=== PATIENT | male | born 1980 | race Caucasian/White ===

== ENCOUNTER → 2018-07-30 | Outpatient (REF) ==
[~2018-07-30] MED LIST: ACET1TAB16 PO; ALEV220T26 PO; GABA-843 PO
--- NOTE | 2018-07-30 13:33 | REP ---
PARTIAL LUMBAR SPINE, THREE VIEWS: HISTORY: Degenerative disc disease. There is no acute fracture. The L3-4 intervertebral disc is decreased in height consistent with disc degeneration. There are 4 mm of retrolisthesis of L5 on S1. There is slight loss of the normal lordotic curve. IMPRESSION: Degenerative change as described above. Electronically Signed by Petey Sawyer MD 07/30/2018 02:02 P
--- NOTE | 2018-07-30 14:12 | REP ---
Right shoulder three views : There is no fracture or dislocation. Mineralization and joint spaces are normal. There are no calcifications or foreign bodies. Impression: Negative right shoulder . Electronically Signed by Jerry Fallon MD 07/30/2018 02:05 P
== END ==
LOC: M SMT 11:24
PROVIDERS: ATTEND Internal Medicine
DX: Z00.00 Encounter for general adult medical examination without abnormal findings (principal)

== ENCOUNTER → 2020-05-31 | Outpatient (CLI) | payer OTHER ==
[~2020-05-31] MED LIST changes: +GABA-282 PO; -GABA-843 PO; +GABA800T4 PO; +LIDOCAINE 1% MDV 20ML VIAL As Ordered ONE; +NABU-53 PO
[2020-05-31 13:25] VITALS: BP 170/97
--- NOTE | 2020-05-31 17:51 | REP ---
INDICATION: ? SEPTIC FACET ARTHRITIS. COMPARISON: None. TECHNIQUE: The procedure was performed under the personal supervision of Dr. Schaffer. The patient has a history of edema of the bone marrow of the right facets at C3 and C4 as well as edema of the tissue to the right of the facets. The risks and benefits of the procedure were explained to the patient and informed consent was obtained. The tissue to the right of the C3 and C4 facets was localized using CT guidance. The skin was prepped and draped in a sterile fashion. 1% lidocaine was used as local anesthetic. Using CT guidance a 19/20 gauge coaxial needle biopsy system was inserted and advanced into the tissue near the facets. A few drops of aspirate were obtained as well as 3 core biopsy samples. The patient tolerated the procedure well and there were no immediate complications. After the appropriate amount to monitor convalescence the patient was discharged from the department. FINDINGS: None IMPRESSION: CT-guided soft tissue aspiration and biopsy of the tissue to the right of the C3 and C4 facets. <Electronically signed by Haile Talley > 05/31/20 [id number] <Electronically signed by Luis A Schaffer > 05/31/20 [id number]
== END ==
LOC: M IRPRO 12:17
PROVIDERS: ATTEND Internal Medicine Infectious Disease
DX: M47.812 Spondylosis without myelopathy or radiculopathy, cervical region (principal)

== ENCOUNTER 2020-06-18 15:00 | Outpatient (CLI) | payer OTHER ==
[~2020-06-18] VITALS: Ht 172.7 cm; Wt 72.7 kg
[~2020-06-18 15:00] MED LIST changes: -LIDOCAINE 1% MDV 20ML VIAL As Ordered ONE; +SODIUM CHLORIDE 0.9% INJ 10 ML SYR IV PRN; +SODIUM CHLORIDE 0.9% INJ 10 ML SYR IV SCH; +cefTRIAXone SOD 2 GM in D5W MINI-BAG PLUS 50 ML IV SCH
[2020-06-18 15:07] VITALS: BP 139/84
[2020-06-18 16:27] VITALS: BP 125/72
== END 2020-06-18 16:30 | disposition home or self-care (01) ==
LOC: M INFU 15:00
PROVIDERS: ATTEND Internal Medicine Infectious Disease
DX: M46.50 Other infective spondylopathies, site unspecified (principal); A49.8 Other bacterial infections of unspecified site; Z88.2 Allergy status to sulfonamides
CPT/HCPCS: 96365; J0696; J1642

== ENCOUNTER → 2020-06-18 | Outpatient (CLI) | payer OTHER ==
[2020-06-18 14:40] VITALS: BP 148/94
--- NOTE | 2020-06-18 17:01 | REP ---
PROCEDURE NAME: PICC LINE INSERTION W/SITERITE CLINICAL INFORMATION: P ACNES INFECTION FOR ANTIBOTICS. COMPARISON: None. PROCEDURE DESCRIPTION: The procedure was performed by ALFREDITO Urbina, under the direct supervision of Dr. Bernal. The risks and benefits of the procedure were explained to the patient and an informed consent was obtained both verbally and written. Directly prior to the start of the procedure a formal time-out was completed in the procedure room. The left basilic vein was localized using ultrasound guidance. The skin was prepped and draped in sterile fashion. One mL of 1% lidocaine 10 mg/mL was used as a local anesthetic. Using ultrasound guidance the left basilic vein was cannulated, and a 0.018 guidewire was inserted and advanced to the level of SVC using fluoroscopic guidance. The needle was removed and a 4 point Canadian dilator and peel-away sheath was inserted over the guidewire. A 4 point Canadian single lumen catheter was cut to a length of 45 cm. The dilator was removed and the catheter was inserted over the guidewire with the tip ending at the level of the SVC. The peel-away sheath was removed and the catheter was flushed with heparinized saline as per hospital protocol. The catheter was affixed to the skin and a sterile dressing was applied. The patient tolerated the procedure well and there were no immediate complications. CONCLUSION: PICC line insertion into the left basilic vein. 0.1 minutes of fluoroscopy time was utilized for this procedure. Some fluoroscopic images are performed with last image hold technology. These images require no additional radiation. <Electronically signed by Kristin Ricks > 06/18/20 [id number] <Electronically signed by Jerry Bernal > 06/18/20 [id number]
== END ==
LOC: M IRPRO 14:02
PROVIDERS: ATTEND Internal Medicine Infectious Disease
DX: M46.50 Other infective spondylopathies, site unspecified (principal)
CPT/HCPCS: 36571; 76937; C1751; J1642; J1644

== ENCOUNTER → 2020-07-05 | Outpatient (REF) | payer OTHER ==
[~2020-07-05] MED LIST changes: -SODIUM CHLORIDE 0.9% INJ 10 ML SYR IV PRN; -SODIUM CHLORIDE 0.9% INJ 10 ML SYR IV SCH; -cefTRIAXone SOD 2 GM in D5W MINI-BAG PLUS 50 ML IV SCH
[2020-07-05 14:47] LABS: HEMATOCRIT 45.1 % (42.0-52.0); HEMOGLOBIN 14.9 g/dl (13.5-17.5); MEAN CORPUSCULAR HEMOGLOBIN 31.5 pg (27.0-33.0); MEAN CORPUSCULAR VOLUME 95.3 fl (80.0-96.0); RED BLOOD COUNT 4.73 10^6/uL (4.30-6.10); WHITE BLOOD COUNT 6.6 10^3/uL (4.0-10.0)
[2020-07-05 14:48] LABS: BASO # 0.1 10^3/uL (0.0-0.2); BASO % 1.4 % (0.0-1.0); EOS # 0.3 10^3/uL (0.0-0.5); EOS % 3.9 % (0.0-3.0); LYMPH # 1.7 10^3/uL (1.5-5.0); LYMPH % 26.3 % (24.0-44.0); MONO # 0.8 10^3/uL (0.0-0.8); MONO % 11.8 % (2.0-8.0); NEUTROPHILS # 3.7 10^3/uL (1.5-8.5); NEUTROPHILS % 56.1 % (36.0-66.0); PLATELET COUNT, AUTOMATED 285 10^3/uL (150-450)
[2020-07-05 15:21] LABS: ERYTHROCYTE SEDIMENTATION RATE 2 mm/hr (0-15)
[2020-07-05 16:40] LABS: ALBUMIN 4.4 GM/DL (3.2-5.2); ALT/SGPT 30 U/L (12-78); BILIRUBIN,TOTAL 0.4 MG/DL (0.2-1.0); BLOOD UREA NITROGEN 17 MG/DL (7-18); CARBON DIOXIDE LEVEL 26 MEQ/L (21-32); CHLORIDE LEVEL 104 MEQ/L (98-107); CREATININE FOR GFR 0.81 MG/DL (0.70-1.30); GLOMERULAR FILTRATION RATE > 60.0 (>60); GLUCOSE, FASTING 65 MG/DL (70-100); POTASSIUM SERUM 4.4 MEQ/L (3.5-5.1); SODIUM LEVEL 138 MEQ/L (136-145); TOTAL PROTEIN 7.5 GM/DL (6.4-8.2)
== END ==
LOC: M SHH 14:18
PROVIDERS: ATTEND Internal Medicine Infectious Disease
DX: M46.50 Other infective spondylopathies, site unspecified (principal); A49.8 Other bacterial infections of unspecified site

== ENCOUNTER → 2020-09-15 | Outpatient (CLI) | payer OTHER ==
[~2020-09-15] MED LIST changes: -NABU-53 PO; +NABU-73 PO
--- NOTE | 2020-09-15 14:19 | REP ---
INDICATION: ABN MRI, ARTHRITIS OF C-SPINE. COMPARISON: None TECHNIQUE: After the intravenous administration of 21.8 mCi of technetium 99 M MDP a total body bone scan was obtained. FINDINGS: Seen on the right and somewhat posteriorly at the level of C3-4/C4-5 there is a focus of increased radionuclide accumulation. There is a mild degenerative type uptake pattern seen in the shoulders. No other areas of abnormal increased decreased radionuclide accumulation are evident. IMPRESSION: Slight focal increased activity in the cervical spine region as described above. Exact etiology uncertain. Possible arthritic changes. Prior MRI from an outside institution did show signal changes at the C3-4 level posteriorly. Other findings as described above. <Electronically signed by Caden Geronimo > 09/15/20 [id number]
== END ==
LOC: M RAD 10:52
PROVIDERS: ATTEND Internal Medicine Infectious Disease
DX: M47.812 Spondylosis without myelopathy or radiculopathy, cervical region (principal); R93.89 Abnormal findings on diagnostic imaging of other specified body structures
CPT/HCPCS: 78306; A9503

== ENCOUNTER 2024-12-12 02:43 | Emergency (ER) | payer OTHER ==
[~2024-12-12] VITALS: Ht 170.2 cm; Wt 70.5 kg
[~2024-12-12 02:43] MED LIST changes: -ACET1TAB16 PO; +ACET300T48 PO; +GABA-1172 PO; +GABA-1635 PO; -GABA-282 PO; -GABA800T4 PO
[2024-12-12 03:12] LABS: PLATELET COUNT, AUTOMATED 347 10^3/uL (150-450)
[2024-12-12 03:36] LABS: BARBITURATES URINE NEGATIVE (NEGATIVE); BENZODIAZEPINES URINE NEGATIVE (NEGATIVE); CANNABINOIDS URINE NEGATIVE (NEGATIVE); COCAINE METABOLITE URINE NEGATIVE (NEGATIVE); METHADONE URINE NEGATIVE (NEGATIVE); PHENCYCLIDINE URINE NEGATIVE (NEGATIVE)
[2024-12-12 03:37] LABS: AMPHETAMINES LEVEL URINE POSITIVE (NEGATIVE); OPIATES URINE POSITIVE (NEGATIVE)
[2024-12-12 03:38] LABS: ETHYL ALCOHOL (ETHANOL) < 0.003 % (0.000-0.010)
[2024-12-12 03:40] LABS: ALT/SGPT 37 U/L (7.0-40); AST/SGOT 24 U/L (<34); CALCIUM LEVEL 9.1 MG/DL (8.5-10.1); CARBON DIOXIDE LEVEL 26 MMOL/L (20-31); CHLORIDE LEVEL 106 MMOL/L (98-107); CREATININE FOR GFR 0.76 MG/DL (0.70-1.30); GLOMERULAR FILTRATION RATE > 90.0 (>60); POTASSIUM SERUM 4.3 MMOL/L (3.5-5.1); SALICYLATE LEVEL < 3.0 MG/DL (<30); SODIUM LEVEL 141 MMOL/L (136-145)
[2024-12-12] MEDS ORDERED: OVERDOSE RESCUE KIT XX SCH (07:35)
[2024-12-12 07:51] VITALS: BP 134/84; TEMP 97; O2SAT 100
== END 2024-12-12 10:55 | disposition home or self-care (01) ==
LOC: M ED 02:43
DX: F15.159 Other stimulant abuse with stimulant-induced psychotic disorder, unspecified (principal); Z79.899 Other long term (current) drug therapy; Z88.2 Allergy status to sulfonamides

== ENCOUNTER 2025-03-25 12:42 | Inpatient (IN) | payer OTHER ==
[~2025-03-25] VITALS: Ht 167.6 cm; Wt 72.3 kg
[2025-03-25 13:16] LABS: PLATELET COUNT, AUTOMATED 330 10^3/uL (150-450)
[2025-03-25 13:34] LABS: ETHYL ALCOHOL (ETHANOL) 0.004 % (0.000-0.010)
[2025-03-25 13:35] LABS: SALICYLATE LEVEL < 3.0 MG/DL (<30)
[2025-03-25 13:36] LABS: ALT/SGPT 21 U/L (7.0-40); AST/SGOT 34 U/L (<34); CALCIUM LEVEL 9.5 MG/DL (8.5-10.1); CARBON DIOXIDE LEVEL 25 MMOL/L (20-31); CHLORIDE LEVEL 102 MMOL/L (98-107); CREATININE FOR GFR 1.11 MG/DL (0.70-1.30); GLOMERULAR FILTRATION RATE 85.0 (>60); POTASSIUM SERUM 4.1 MMOL/L (3.5-5.1); SODIUM LEVEL 137 MMOL/L (136-145)
[2025-03-25 13:43] LABS: BARBITURATES URINE NEGATIVE (NEGATIVE); BENZODIAZEPINES URINE NEGATIVE (NEGATIVE); COCAINE METABOLITE URINE NEGATIVE (NEGATIVE); METHADONE URINE NEGATIVE (NEGATIVE)
[2025-03-25 13:44] LABS: PHENCYCLIDINE URINE NEGATIVE (NEGATIVE)
[2025-03-25 13:47] LABS: AMPHETAMINES LEVEL URINE POSITIVE (NEGATIVE); CANNABINOIDS URINE POSITIVE (NEGATIVE); OPIATES URINE POSITIVE (NEGATIVE)
[2025-03-25] MEDS ORDERED: OLANZapine 5 MG TAB PO PRN (16:25)
[2025-03-25] MEDS ORDERED: IBUPROFEN 400 MG TAB PO PRN (16:25)
[2025-03-25] MEDS ORDERED: MOM 30 ML SUSPENSION UDC PO PRN (16:25)
[2025-03-25] MEDS ORDERED: HALOPERIDOL 5 MG TAB PO PRN (16:25)
[2025-03-25] MEDS ORDERED: MAALOX 30 ML SUSP *UDC PO PRN (16:25)
[2025-03-25] MEDS ORDERED: ACETAMINOPHEN 325 MG TAB PO PRN (16:25)
[2025-03-25 16:41] VITALS: BP 146/86; TEMP 98; O2SAT 97
[2025-03-25] MEDS ORDERED: ACET300T52 PO (16:42)
[2025-03-25] MEDS ORDERED: TIZA4CAP3 PO (16:42)
[2025-03-25] MEDS ORDERED: HOME MED LIST COMPLETE! XX SCH (16:45)
[2025-03-25] MEDS: ACETAMINOPH W/CODEINE #3 TAB UD PO PRN (21:16)
[2025-03-25] MEDS: GABAPENTIN 400 MG CAP PO SCH (21:16)
[2025-03-26 06:48] VITALS: BP 136/79; TEMP 96.3; O2SAT 96
[2025-03-26] MEDS: OLANZapine ORAL DISINTEGRATING TAB 5MG PO ONE (08:15)
[2025-03-26] MEDS: NICOTINE 14 MG/24 HR TRANSDERMAL TD SCH (08:26)
[2025-03-26 15:09] VITALS: BP 125/69; TEMP 97.3; O2SAT 100
[2025-03-27 06:24] VITALS: BP 119/68; TEMP 97.2; O2SAT 99
[2025-03-27 16:49] VITALS: BP 138/59; TEMP 97.4; O2SAT 100
[2025-03-27] MEDS: LORazepam 1 MG TAB PO PRN (20:39)
[2025-03-27] MEDS: traZODone 50 MG TAB PO PRN (20:39)
[2025-03-28 06:30] VITALS: BP 133/60; TEMP 98.2; O2SAT 97
[2025-03-28 14:35] VITALS: BP 142/78; TEMP 98; O2SAT 100
[2025-03-28] MEDS: traZODone 50 MG TAB PO PRN (20:09)
[2025-03-29 06:09] VITALS: BP 147/76; TEMP 98.1; O2SAT 98
[2025-03-29 14:43] VITALS: BP 131/74; TEMP 98.4; O2SAT 100
[2025-03-30 06:36] VITALS: BP 119/70; TEMP 97.6; O2SAT 98
== END 2025-03-30 11:20 | disposition home or self-care (01) | DRG 773 ==
LOC: M ED 12:42 → M ED INP 16:21 → M PSY 17:40
PROVIDERS: ADMIT Internal Medicine; ATTEND Psychiatry & Neurology Psychiatry
DX: F15.259 Other stimulant dependence with stimulant-induced psychotic disorder, unspecified (principal); F11.20 Opioid dependence, uncomplicated; F12.10 Cannabis abuse, uncomplicated; G89.29 Other chronic pain; M54.50 Low back pain, unspecified; F41.9 Anxiety disorder, unspecified; R51.9 Headache, unspecified; Z81.8 Family history of other mental and behavioral disorders; Z79.899 Other long term (current) drug therapy; Z88.2 Allergy status to sulfonamides; Z89.421 Acquired absence of other right toe(s)